=== PATIENT | male | born 1960 | race Caucasian/White ===

== ENCOUNTER 2018-07-07 08:25 | Day surgery (SDC) | payer BC ==
[~2018-07-07] VITALS: Ht 185.4 cm; Wt 125.4 kg
[2018-07-07] MEDS ORDERED: LACTATED RINGERS 1,000 ML IV SCH (09:04)
[2018-07-07] MEDS ORDERED: OMEG1CAP34 PO (09:06)
[2018-07-07] MEDS ORDERED: ATOR20TA37 PO (09:06)
[2018-07-07] MEDS ORDERED: METF500T17 PO (09:06)
[2018-07-07] MEDS ORDERED: ASPI-496 PO (09:06)
[2018-07-07] MEDS ORDERED: GARL10002 PO (09:06)
[2018-07-07] MEDS ORDERED: LISI-167 PO (09:06)
[2018-07-07 09:07] VITALS: BP 143/92
[2018-07-07] MEDS ORDERED: PLEASE ENTER HEIGHT AND WEIGHT MC SCH (09:30)
[2018-07-07] MEDS ORDERED: MIDAZOLAM 1 MG/ML, 2ML ONE (09:43)
[2018-07-07] MEDS ORDERED: FENTANYL PF 250 MCG/5ML ONE ×2 (09:44→11:50)
[2018-07-07] MEDS ORDERED: ONDANSETRON 2MG/ML, 2ML ONE (10:13)
[2018-07-07] MEDS ORDERED: SUCCINYLCHOLINE 20 MG/ML, 10ML ONE (10:13)
[2018-07-07] MEDS ORDERED: PROPOFOL 10 MG/ML, 20ML ONE (10:13)
[2018-07-07] MEDS ORDERED: DEXAMETHASONE 4 MG/ML, 1ML ONE (10:13)
[2018-07-07] MEDS ORDERED: ALBUTEROL SULFATE 2.5 MG/3 ML NPPB PRN (11:00)
[2018-07-07] MEDS ORDERED: hydrALAzine 20 MG/ML, 1ML IV PRN (11:00)
[2018-07-07] MEDS ORDERED: LORazepam 2 MG/ML, 1ML IVPush PRN (11:00)
[2018-07-07] MEDS ORDERED: MEPERIDINE/PF 25MG/0.5ML IVPush PRN (11:00)
[2018-07-07] MEDS ORDERED: LABETALOL 5MG/ML, 20ML IV PRN (11:00)
[2018-07-07] MEDS ORDERED: ACETAMINOPHEN 325 MG TABLET PO PRN (11:00)
[2018-07-07] MEDS ORDERED: PROMETHAZINE 25 MG/ML, 1ML IV PRN (11:00)
[2018-07-07] MEDS ORDERED: OXYcodone 5 MG/5 ML ORAL.SOL UDC PO PRN (11:00)
[2018-07-07] MEDS ORDERED: FENTANYL PF 100 MCG/2ML ONE (12:26)
[2018-07-07] MEDS: FENTANYL PF 100 MCG/2ML IV PRN ×2 (12:31→12:38)
[2018-07-07] MEDS ORDERED: ACETAMINOPHEN 650 MG/20.3 ML UDC ONE (12:33)
[2018-07-07] MEDS ORDERED: OXYcodone 5 MG/5 ML ORAL.SOL UDC ONE (12:34)
[2018-07-07] MEDS ORDERED: HYDROmorphone 2 MG/ML, 1ML ONE (12:58)
[2018-07-07] MEDS: HYDROmorphone 1 MG/ML, 1ML IV PRN ×3 (13:00→13:16)
== END 2018-07-07 15:20 | disposition home or self-care (01) ==
LOC: OUT 08:25
PROVIDERS: ATTEND Internal Medicine Critical Care Medicine
DX: J18.8 Other pneumonia, unspecified organism (principal); R59.1 Generalized enlarged lymph nodes; I10 Essential (primary) hypertension; E11.9 Type 2 diabetes mellitus without complications; E66.9 Obesity, unspecified; E78.5 Hyperlipidemia, unspecified; Z87.891 Personal history of nicotine dependence; Z79.82 Long term (current) use of aspirin; Z79.84 Long term (current) use of oral hypoglycemic drugs
CPT/HCPCS: 31623; 31624; 31628; 31652; 71045; 76000; 82962; 87015; 87070; 87102; 87116; 87205; 87206; 88104; 88112; 88172; 88173; 88177; 88305; J0330; J1100; J1170; J2250; J2405; J2704; J3010; J7120; 31625; 31629